=== PATIENT | male | born 1980 | race Caucasian/White ===

== ENCOUNTER 2016-05-09 01:49 | Emergency (ER) | payer OTHER, BC ==
[~2016-05-09] VITALS: Ht 175.3 cm; Wt 82.4 kg
[2016-05-09 01:54] VITALS: TEMP 36.8; Ht 175.3 cm; Wt 82.4 kg
[2016-05-09] MEDS ORDERED: PROPARACAINE HCL 0.5% OP SOLN 15 ML BTL OP STA (02:03)
[2016-05-09] MEDS ORDERED: DIPHTHERIA/TETANUS/PERTUSSIS 0.5 ML SYR/VIAL IM. ONE (02:15)
--- NOTE | 2016-05-09 02:24 | EMERGENCY ROOM VISIT NOTE ---
History First contact with patient: 01:58 Chief Complaint: EYE ASSESSMENT Stated Complaint: GOT SOMETHING IN LEFT EYE AT WORK History of Present Illness The patient is a 35 year old male who presents to the Emergency Department by private vehicle for evaluation of an exposure, chemical to his LEFT eye. He reports that while at work he was utilizing a machine when he chemical sprayed into his LEFT eye secondary to pressure machine had built up. He was not wearing safety glasses. He was wearing his prescribed glasses. He is not wear contact lenses. He reports that initially there was a moderate amount of burning. He flushed the eye copiously for proximally 10 minutes. He reports that the burning has subsided, however he does report increasing tearing as well as redness to the eye. He denies any blurry or double vision. He rates his current discomfort as 0/10. Patient denies any headaches, dizziness, lightheadedness, nausea, or vomiting. Review of Systems A complete 10-point Review of Systems was discussed with the patient, with pertinent positives and negatives listed in the History of Present Illness. All remaining Review of Systems questions can be considered negative unless otherwise specified. Social History Smoking Status: Never Smoker Smokeless Tobacco Use: No Occupation Status: employed Current/Historical Medications Scheduled PRN Ibuprofen (Motrin), 400 MG PO Q6H PRN for Pain Allergies Coded Allergies: No Known Allergies (Unverified , 05/09/16) Physical Exam Vital Signs Date Time Temp Pulse Resp B/P Pulse Ox O2 Delivery O2 Flow Rate FiO2 05/09/16 03:08 75 18 127/92 98 05/09/16 01:54 36.8 85 18 148/101 97 Room Air Pain Rating (0-10): 0 Physical Exam VITAL SIGNS - Vital signs and nursing notes were reviewed. GENERAL - 35-year-old male appearing his stated age. Communicates well with provider and answers questions appropriately. HEAD - Normocephalic, Atraumatic. No Pompa's Sign or Raccoon's Eyes. No depressed skull fractures palpable. EYES - PERRL with EOMI bilaterally. Sclera without noticeable foreign body or excoriations. Moderate injection noted in the LEFT eye. Without subconjunctival hemorrhage. Palpebral conjunctiva pink and moist with no injection or discharge noted. Slit lamp examination performed as further described. EARS - No deformities of external structures noted on gross examination bilaterally. Handle of malleus, umbo, cone of light, pars tensa/flaccid all easily visualized. NOSE - Midline and without cyanosis. Without discharge. MOUTH/OROPHARYNX - Without perioral cyanosis. Tongue midline with equal elevation of palate bilaterally. No tonsillar hypertrophy, erythema, or exudates noted. Good dentition noted. NECK - FROM assessed. No cervical lymphadenopathy noted. Medical Decision & Procedures Medications Administered Medications (Trade) Dose Ordered Sig/Grisel Route Start Time Stop Time Status Last Admin Dose Admin Proparacaine HCl (Alcaine 0.5% Oph Soln) 2 drops NOW STAT OP 05/09/16 02:03 05/09/16 02:04 DC 05/09/16 02:12 2 DROPS Diphtheria/ Pertussis/Tetanus Vacc (Adacel Inj) 0.5 ml ONCE ONCE IM. 05/09/16 02:15 05/09/16 02:16 DC 05/09/16 02:14 0.5 ML Ciprofloxacin HCl (Ciprofloxacin 0.3% Op Soln) 2 drops NOW STAT OP 05/09/16 02:52 05/09/16 02:53 DC 05/09/16 03:05 37 DROPS Procedure Alcaine drops were applied to the affected eye. After proper anesthetization was achieved, a Marcellus lens attached to a 1000 cc bag of NSS was inserted into the eye without difficulty. The flow of the NSS was adjusted to the patient's comfort. The entire bag of NSS was allowed to flow through the patient's eye to ensure adequate dilution of any remaining chemicals. The patient tolerated the procedure well and no complications were met. Slit Lamp Examination was performed of the LEFT eye(s). Alcaine drops were applied to the affected eye(s) for proper anesthetization. The affected eye(s) were stained with Fluorescein stain to precipitate adequate visualization of any conjunctival/scleral excoriations or ulcers. The patient's face was comfortably rested on the chin guard of the slit lamp apparatus. The lights were dimmed and the affected eye(s) were thoroughly examined under microscopy using the blue light. No uptake was present throughout. Additionally, the eye(s ) were examined under microscopy using the regular light. Close examination revealed no foreign bodies, hyphema, or hypopyon. Patient tolerated the procedure well and no complications were met. ED Course Patient was seen and evaluated by myself. Marcellus lens was performed as described above. I did speak with poison control who suggests flushing the eye and symptomatic management otherwise. Patient was provided his tetanus booster. Slit lamp exam was performed. There does not appear to be any corneal son or abrasions noted. Patient was educated on today's eyes. He was provided Ciloxan drops for the next few days prophylactically. He will follow-up with his senior etl developer or return in the setting of any change or worsening symptoms. Patient discharged home afebrile and in good condition. Medical Decision Given the patient's presentation and stated complaints, I did elect to perform the above-mentioned workup. The patient presents today with exposure to the LEFT-sided eye. He did flush immediately. The eye was copiously irrigated in the emergency setting. Slit-lamp exam and Marcellus lens had been performed. The patient is likely expansive local irritation secondary to chemical exposure. He 'll be provided Ciloxan drops for comfort. He will return in the setting of a changing or worsening since. Patient discharged home in good condition. In the evaluation and treatment of this patient, the following differential diagnoses were considered: Corneal Abrasion, Conjunctivitis, Eye Contusion, Globe Injury, Orbital Floor Injury (Blowout Fracture), Corneal Ulcer, Keratitis , Herpes Zoster Ophthalmic, Blepharitis, Orbital Cellulitis, Iritis, Scleritis/ Episcleritis, Uveitis, Temporal Arteritis, Subconjunctival Hemorrhage. Impression Primary Impression: Chemical exposure of eye Departure Information Dispostion Home / Self-Care Condition GOOD Referrals No Doctor, Assigned (PCP) Patient Instructions A Signature Page, My [facility] Additional Instructions You have been treated in the Emergency Department for Chemical Exposure to the LEFT Eye. Please use the Ciloxan drops 2 drops to the LEFT eye 4 times daily for the next 7 days. For pain control, you can use the following [id number] medicines (if >12 yo): - Regular strength (325mg/tab) Tylenol (acetaminophen) 2 tabs every 4-6 hours as needed. Do not exceed 12 tablets in a 24 hour period. Avoid taking more than 4 grams (4000 mg) of Tylenol per day. This includes any other sources of acetaminophen you may take on a regular basis. - Regular strength (200 mg/tab) Advil (ibuprofen) 1-2 tabs every 4-6 hours as needed. Do not exceed a dose of 3200 mg per day. Avoid rubbing your eyes for the next few days as this can cause irritation. Wear sunglasses when outside to help minimize your pain. You should relax in a quiet, dark room to help minimize your symptoms. Follow-up with your senior etl developer or Workmen's Compensation approval provider if your symptoms change or worsen. Return to the emergency department if you develop the following symptoms despite treatment course outlined above: blurry vision, loss of vision, fever, intractable pain, increased redness, swelling, or purulent discharge.
[2016-05-09] MEDS ORDERED: IBUP-1459 PO (02:25)
[2016-05-09] MEDS ORDERED: CIPROFLOXACIN HCL 0.3% OP SOLN 2.5 ML BTL OP STA (02:52)
[2016-05-09 03:08] VITALS: BP 127/92; PULSE 75; O2SAT 98
== END 2016-05-09 03:09 | disposition home or self-care (01) ==
LOC: C.EDB 01:51
DX: T15.82XA Foreign body in other and multiple parts of external eye, left eye, initial encounter (principal); X58.XXXA Exposure to other specified factors, initial encounter; Y92.89 Other specified places as the place of occurrence of the external cause; Z23 Encounter for immunization